=== PATIENT | female | born 1990 ===

== ENCOUNTER 2020-06-10 17:51 | Emergency (ER) | payer SELFPAY ==
[2020-06-10 18:38] VITALS: BP 140/86
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
== END 2020-06-10 18:59 | disposition left against medical advice (07) ==
LOC: ED 17:51
DX: S39.92XA Unspecified injury of lower back, initial encounter (principal); Z91.040 Latex allergy status; Z90.710 Acquired absence of both cervix and uterus; Z91.018 Allergy to other foods; Z98.890 Other specified postprocedural states; Z90.49 Acquired absence of other specified parts of digestive tract; Z86.69 Personal history of other diseases of the nervous system and sense organs; V49.49XA Driver injured in collision with other motor vehicles in traffic accident, initial encounter; Y92.410 Unspecified street and highway as the place of occurrence of the external cause; Y93.89 Activity, other specified; Y99.8 Other external cause status